=== PATIENT | female | born 1955 | race Hispanic/Latino ===

== ENCOUNTER 2019-10-13 21:00 | Observation (INO) | payer OTHER ==
[~2019-10-13] VITALS: Ht 152.4 cm; Wt 51.7 kg
[2019-10-13] MEDS ORDERED: SODIUM CHLORIDE 0.9% 1000ML 1,000 ML IV STA (21:11)
[2019-10-13 21:27] LABS: BASOPHILS % 0.6 % (0.0-1.0); EOSINOPHILS # (AUTO) 0.1 (0.0-0.4); EOSINOPHILS % 1.7 % (0.0-6.0); HEMOGLOBIN 12.5 g/dL (12.0-16.0); LYMPHOCYTES % 41.2 % (18.0-39.1); MEAN CORPUSCULAR HEMOGLOBIN 30.3 pg (28-32); MEAN CORPUSCULAR HGB CONC 32.1 g/dL (31-35); MEAN CORPUSCULAR VOLUME 94.4 fL (81-99); MONOCYTES # (AUTO) 0.6 (0.2-0.8); MONOCYTES % 8.1 % (4.4-11.3); NEUTROPHILS # (AUTO) 3.5 (2.1-6.9); NEUTROPHILS % 48.3 % (38.7-80.0); PLATELET COUNT 258 x10e3/uL (140-360); RED BLOOD COUNT 4.13 x10e6/uL (3.6-5.1); RED CELL DISTRIBUTION WIDTH 12.7 % (11.7-14.4)
[2019-10-13 21:42] LABS: ALANINE AMINOTRANSFERASE 18 IU/L (0-55); ALBUMIN 4.1 g/dL (3.5-5.0); ALBUMIN/GLOBULIN RATIO 1.1 (0.8-2.0); ALKALINE PHOSPHATASE 78 IU/L (40-150); BLOOD UREA NITROGEN 22 mg/dL (7-26); BUN/CREATININE RATIO 24 (6-25); CALCIUM 9.5 mg/dL (8.4-10.2); CARBON DIOXIDE 27 mmol/L (22-29); CHLORIDE 103 mmol/L (98-107); CREATINE KINASE 79 IU/L (29-168); CREATININE, SERUM 0.92 mg/dL (0.57-1.11); EST GLOMERULAR FILTRATION RATE > 60 ML/MIN (60-); GLUCOSE 101 mg/dL (74-118); SODIUM 140 mmol/L (136-145)
[2019-10-13 21:46] LABS: AMPHETAMINES SCREEN,URINE NEGATIVE (NEGATIVE); BENZODIAZEPINES SCREEN,URINE NEGATIVE (NEGATIVE); PHENCYCLIDINE SCREEN,URINE NEGATIVE (NEGATIVE)
[2019-10-13] MEDS ORDERED: MORPHINE SULFATE INJ 4 MG/ML INJ 1ML IV PRN (22:00)
[2019-10-13] MEDS ORDERED: ONDANSETRON HCL INJ 2MG/ML 2ML 2 MG/ML VIAL IV PRN (22:00)
--- NOTE | 2019-10-13 22:21 | Diagnostic Imaging Report ---
EXAMINATION: CHEST SINGLE (PORTABLE) INDICATION: Hypertension, chest pain. COMPARISON: None FINDINGS: TUBES and LINES: None. LUNGS: Lungs are well inflated. There is no evidence of pneumonia or pulmonary edema. PLEURA: No pleural effusion or pneumothorax. HEART AND MEDIASTINUM: The cardiomediastinal silhouette is unremarkable. BONES AND SOFT TISSUES: No acute osseous lesion. Soft tissues are unremarkable. UPPER ABDOMEN: No free air under the diaphragm. IMPRESSION: No acute thoracic abnormality. Signed by: Dr. Austin Sal MD on 10/13/2019 10:17 PM
--- OUTSIDE RECORDS SUMMARY | 2019-10-13 22:42 | XMS REPORT ---
Author Author [facility] Address Unknown Phone Unavailable Care Team Providers Care Cable Layer Name Role Phone ZAMBRANO MICHELLE Unavailable Unavailable Problems This patient has no known problems. Allergies, Adverse Reactions, Alerts This patient has no known allergies or adverse reactions. Medications This patient has no known medications. Results Test Description Test Time Test Comments Text Results Atomic Results Result Comments CHEST SINGLE (PORTABLE) 2019-10-13 22:12:00 [place] [address] Patient Name: SHA SANABRIA MR #: [id number] : 1955 Age/Sex: 64/F Req #: [id number] Adm Physician: Ordered by: MICHELLE ZAMBRANO DO Report #: [id number] Location: ER Room/Bed: Procedure: [id number] DX/CHEST SINGLE (PORTABLE) Exam Date: Exam Time: REPORT STATUS: Signed EXAMINATION: CHEST SINGLE (PORTABLE) INDICATION: Hy pertension, chest pain. COMPARISON: None FINDINGS: TUBES and LINES: None. LUNGS: Lungs are well inflated. There is no evidence of pneumonia or pulmonary edema. PLEURA: No pleural effusion or pneumothorax. HEART AND MEDIASTINUM: The cardiomediastinal silhouette is unremarkable. BONES AND SOFT TISSUES: No acute osseous lesion. Soft tissues are unremarkable. UPPER ABDOMEN: No free air under the diaphragm. IMPRESSION: No acute thoracic abnormality. Signed by: Dr. Selma Rueda MD on 10/13/2019 10:17 PM Dictated By: SELMA RUEDA MD 16 Transcribed By: GENESIS on 10/13/192216 COPY TO: MICHELLE ZAMBRANO DO
[2019-10-13] MEDS ORDERED: MYRBETRIQ25 MG PO (23:38)
[2019-10-13] MEDS ORDERED: VITAMIN B-121000 MCG PO (23:38)
[2019-10-13] MEDS ORDERED: ONE DAILY MULT1 EAC1 PO (23:38)
[2019-10-13] MEDS ORDERED: ASPIRIN EC81 MG PO (23:38)
[2019-10-13] MEDS ORDERED: ZYRTEC10 MG PO (23:38)
[2019-10-13] MEDS ORDERED: EZETIMIBE-SIMV1 EAC3 PO (23:38)
[2019-10-13] MEDS ORDERED: ESTRADIOL1 MG PO (23:38)
[2019-10-13] MEDS ORDERED: ZANTAC150 MG PO (23:38)
[2019-10-13] MEDS ORDERED: SYNTHROID50 MCG PO (23:38)
[2019-10-13] MEDS ORDERED: NON-FORMULARY MEDICATION (Cetirizine Hcl (Zyrtec) 10 MG) PO SCH (23:45)
[2019-10-13] MEDS ORDERED: FAMOTIDINE 20 MG TAB PO SCH (23:45)
[2019-10-14] VITALS (10 sets, daily range): BP systolic 123–172; BP diastolic 66–91
[2019-10-14] MEDS ORDERED: ACETAMINOPHEN 325 MG TAB PO PRN (04:15)
--- NOTE | 2019-10-14 07:10 | NUR ---
PATIENT SITTING UP IN BED TALKING ON THE PHONE, NO DISTRESS NOTED. DENIED PAIN AT THIS TIME. BED IN LOWER POSITION, CALL LIGHT AT REACH.
[2019-10-14] MEDS: ASPIRIN 81 MG ENTERIC COATED PO SCH (09:14)
[2019-10-14] MEDS: LOSARTAN POTASSIUM 100 MG TAB PO SCH (09:14)
--- NOTE | 2019-10-14 11:42 | NUR ---
BEDSIDE ECHO CARDIOGRAM COMPLETED. PATIENT SITTING AT BED SIDE TALKING TO FAMILY MEMBER VISITING.
--- NOTE | 2019-10-14 12:24 | Diagnostic Imaging Report ---
CT BRAIN WO HISTORY: Headache, high blood pressure COMPARISON: None. TECHNIQUE: Noncontrast axial scans were obtained from skull base to the vertex. Coronal and sagittal reconstructions obtained from the axial data. One or more of the following dose reduction techniques were used: Automated exposure control, adjustment of the mA and/or kV according to patient size, and/or utilization of iterative reconstruction technique. DISCUSSION: Scalp/Skull: Unremarkable. Brain sulci: Appropriate for patient's age. Ventricles: Normal in size and configuration. No hydrocephalus. Extra-axial spaces: No masses or fluid collections. Mild carotid siphon calcifications are present. Parenchyma: No abnormal densities. No mass, hemorrhage, or large vascular territory acute infarct. Dural sinuses: No abnormal densities. Sellar/Suprasellar region: Intact. Skull base: Intact. Incidental findings: None. IMPRESSION: No acute intracranial abnormalities. Signed by: Dr. Sam Wolfe M.D. on 10/14/2019 12:20 PM
--- NOTE | 2019-10-14 12:54 | History and Physical ---
CHIEF COMPLAINT: Chest pain, elevated blood pressure readings. HISTORY OF PRESENT ILLNESS: A 64-year-old female, who has past medical history of hyperlipidemia, hypothyroidism, as well as reflux, presents to the emergency room after she noticed that her blood pressure readings at home were elevated in 180s. The patient reports having some lightheadedness and dizziness when this occurred. The patient reports that she had an annual physical last year. Reports that her blood pressure was stable at that time and did not need any kind of blood pressure medications. Of note, she reports of substernal chest pain with radiation to bilateral shoulders. No associated nausea or vomiting. Reports the pressure as substernal in nature. Has never experienced this chest pain before. She does see a seo executive at [facility]. Has never had a heart catheterization or any kind of cardiac workup in the past. The patient is seen and evaluated at bedside on the medical floor. She is currently doing well with no other issues at this time. REVIEW OF SYSTEMS: Pertinent positive: Chest pressure, lightheadedness, dizziness. Pertinent negatives: Denies any palpitation, nausea, vomiting, diarrhea, dysuria, hematuria, frequency, urgency, headaches, shortness of breath, cough, congestion, fever, or any other complaints. The rest of 14-point review of systems are reviewed with the patient and are negative. ALLERGIES: PENICILLIN. HOME MEDICATIONS: Aspirin 81 mg daily, Zyrtec 10 mg daily, combo drug simvastatin and ezetimibe 10/40 mg one tab daily, Synthroid 25 mcg daily, Zantac 150 mg daily. PAST MEDICAL HISTORY: Hypothyroidism, hyperlipidemia. PAST SURGICAL HISTORY: Reports none. FAMILY HISTORY: Hypertension, diabetes. SOCIAL HISTORY: No drugs. No alcohol. Does not smoke. Good social support. PHYSICAL EXAMINATION: VITAL SIGNS: Temperature is 97, pulse 68, respiratory rate 16, blood pressure 161/77, pulse ox 99% on room air. GENERAL: Not in acute distress. Alert and oriented x3. Cooperative on examination. HEENT: Head; normocephalic, atraumatic. Eyes; pupils are equal, round, and reactive to light bilaterally. Extraocular movements are intact bilaterally. Throat; no evidence of erythema or exudates in the posterior pharynx. Has poor dentition. NECK: Supple. Good range of motion. PULMONARY: Clear to auscultation bilaterally. No wheezing, no rales, no rhonchi, no crackles appreciated. CARDIOVASCULAR: Positive S1 and S2. No murmurs, rubs, or gallops appreciated. ABDOMEN: Soft, nondistended, and nontender to palpation. Bowel sounds present. MUSCULOSKELETAL: Strength is 5/5 throughout. No evidence of any muscle deficits on examination. No weakness appreciated. NEUROLOGIC: Cranial nerve 2 through 12 grossly intact. No evidence of any neurological deficits on exam. SKIN: Intact. Warm to touch. Good cap refill. PSYCHIATRIC: Normal affect and mood. EXTREMITIES: No edema. Good range of motion throughout. LABORATORY FINDINGS: Show white count 7.1, hemoglobin 12.5, hematocrit 39, and platelets of 258. Chemistry; sodium 140 potassium 4, chloride 103, bicarb 27, anion gap of 14, BUN 22, creatinine 0.92, glucose 101, calcium 7.5, total bilirubin was 0.2, AST 21, ALT 18, alkaline phosphatase 78. CK 79, CK-MB 1.2, troponin 0.011, BNP 14. Total protein 7.7, albumin 4.1. Urine drug screen negative. MICROBIOLOGY: None. IMAGING STUDIES: Chest x-ray, no acute traumatic abnormalities. IMPRESSION: 1. Chest pain, rule out acute coronary syndrome, likely atypical in nature. 2. Uncontrolled hypertension. 3. Headaches with history of migraines in the past. 4. Hypothyroidism. PLAN: At this time, trend troponins, aspirin and statin. Cardiology consultation. We will likely need 2D echo, which we will defer to Cardiology. As for her blood pressure, she was started on losartan 100 mg daily, 1st dose now. Her blood pressure was elevated. As for her headaches, we will go ahead and get a CT brain without contrast. This is likely related to uncontrolled hypertension. She did not have SVT on admission. We will go ahead and continue with the levothyroxine. We will get a lipid panel, A1c, TSH level and get morning labs. Lovenox for DVT prophylaxis. Encourage ambulation as well. She is on a heart healthy diet. .Net Programmer is cardiology. She will likely be discharged tomorrow if cleared by Cardiology. MD LENI Dhillon/SARAI /[id number]
--- NOTE | 2019-10-14 14:52 | NUR ---
PATIENT OUT OF BED TO CHAIR WATCHING TV, NO COMPLAIN VOICED. CALL LIGHT AT REACH.
[2019-10-14] MEDS ORDERED: ENOXAPARIN SOD INJ 40 MG/0.4 ML SYR SC SCH (17:00)
[2019-10-14] MEDS ORDERED: LORATADINE 10 MG TAB PO SCH ×2 (21:00)
[2019-10-14] MEDS ORDERED: FAMOTIDINE 20 MG TAB PO SCH (21:00)
[2019-10-14] MEDS ORDERED: EZETIMIBE 10 MG TAB PO SCH (21:00)
[2019-10-14] MEDS ORDERED: SIMVASTATIN 40 MG TAB PO SCH (21:00)
--- NOTE | 2019-10-14 21:42 | Consultation ---
DATE OF CONSULTATION: 10/14/2019 CHIEF COMPLAINT: Hypertension and chest pain. HISTORY OF PRESENT ILLNESS: This is a 64-year-old female with history of hyperlipidemia, hypothyroidism, and family history of CAD. The patient presents to [facility] ER with complaints of elevated blood pressure noted to be 180 systolic on admission and some dizziness, lightheadedness. Also, the patient reported chest discomfort. Cardiology was consulted to evaluate the patient. The patient was seen in room in no acute distress. Reports for the past several weeks has been having headaches when she wakes up, posterior headache with eye fatigue, went to see her eye doctor and was reported as normal. Also, yesterday, the patient reports she was at her sister's house eating and noted to have a headache and felt tired, took a blood pressure and it was apparently 164 systolic, she took 3 of aspirin and went home. Also at home, the patient reports she was taking a shower and started having some chest pain, pressure in nature, radiating to bilateral shoulders with some degree of shortness of breath, lasting for a couple hours, relieved on its own, therefore, came to the ER for further evaluation. Troponins were noticed to be 0.011, next 0.011. EKG without changes suggestive of acute event. Currently, the patient is chest pain free and headache free. Denies any shortness of breath, dizziness, or lightheadedness. PAST MEDICAL HISTORY: Hyperlipidemia, hypothyroidism, and a family history of CAD. PAST SURGICAL HISTORY: and tonsillectomy. SOCIAL HISTORY: She is . 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 Denies any alcohol use or tobacco use. FAMILY HISTORY: Mother at age 62 from [place]. Father at the age of 82 with history of TIAs. HOME MEDICATIONS: Include: 1. Zetia 10 mg. 2. Simvastatin 40 mg. 3. Synthroid 25 mcg. 4. Aspirin 81 mg daily. ALLERGIES: PENICILLIN. REVIEW OF SYSTEMS: GENERAL: Denies any fatigue, weakness, fevers, chills, or night sweats. SKIN: No rashes or sores reported. HEENT: Positive for nausea and vomiting twice yesterday morning. Denies any blurred vision, double vision, earaches, tinnitus, epistaxis, sore throat, swollen gums, or stiff neck. CARDIAC: Positive for chest pain as above. There is positive dyspnea on exertion. Denies any palpitations, any orthopnea, PND, or lower extremity edema. RESPIRATORY: Denies any shortness of breath, any coughing, or hemoptysis. GI: Reports good appetite. Positive for nausea and vomiting. Denies any diarrhea, constipation, melena, or hematochezia. URINARY: Denies any frequency, urgency, dysuria, or hematuria. VASCULAR: Denies any lower extremity edema or claudication. MUSCULOSKELETAL: Positive for generalized joint pains. Denies any lower extremity edema. NEUROLOGIC: Denies any tremors, weakness, paralysis, seizures, or blackouts. HEMATOLOGIC: Denies any anemia or easy bruising. ENDOCRINE: Denies any heat or cold intolerance, polyuria, polydipsia, or polyphagia. PHYSICAL EXAMINATION: VITAL SIGNS: Height 68 inches, weight 114 pounds. On admission, blood pressure 180/99. Currently, blood pressure 145/74, temperature 97.3, pulse 71, respiratory rate 18, and pulse ox 98% on room air. GENERAL: Appears stated age, reliable informant, in no acute distress. SKIN: No rashes or bruises noted. HEENT: Normocephalic. Pupils are equal and reactive. Extraocular movements intact. Trachea midline. No JVD. No carotid bruit. Oral mucosa pink. HEART: Regular rate and rhythm. No murmurs, clicks, or gallops noted. LUNGS: Bilateral breath sounds clear to auscultation. ABDOMEN: Soft, nontender, and nondistended. No organomegaly noted. MUSCULOSKELETAL: Good muscle strength throughout. VASCULAR: +2 bilateral radial pulses, +1 DP and PT pulses bilaterally. No lower extremity edema. NEUROLOGIC: Cranial nerves II through XII seem intact. LABORATORY DATA: Sodium 140, potassium 4.0, chloride 103, BUN 22, creatinine 0.9, and glucose 101. BNP 14. Troponin 0.011 and next 0.011. White count 7, hemoglobin 12, hematocrit 39, and platelets 258. Chest x-ray, no acute abnormalities. CT of the brain, no acute intracranial abnormalities. EKG, normal sinus rhythm. ASSESSMENT: 1. Hypertension. 2. Chest pain. 3. Headaches. 4. Hyperlipidemia. 5. Hypothyroidism. 6. Family history of coronary artery disease. PLAN: 1. The patient presents with chest pain and headaches and noted blood pressure to be in the 180 systolic on admission. Cardia enzymes negative x2 thus far. 2. Long discussion with the patient regarding ischemic evaluation. Stress test discussed. We will proceed with stress test in a.m. 3. We will go ahead and get a lipid panel. 4. Continue antihypertensive therapy, currently on losartan. 5. Continue her simvastatin and Zetia therapy. 6. Echo has been done, will be reviewed by Cardiology attending. 7. We will continue to monitor. Further recommendations post ischemic evaluation. Thank you very much for this consult. Dictated by Darian Stokes NP Guilherme Ramey MD DC/MODL /[id number]
[2019-10-15 00:27] VITALS: BP 130/70
[2019-10-15 04:00] VITALS: BP 119/62
[2019-10-15 05:49] LABS: BASOPHILS # (AUTO) 0.1 (0.0-0.1); BASOPHILS % 1.2 % (0.0-1.0); EOSINOPHILS # (AUTO) 0.1 (0.0-0.4); EOSINOPHILS % 2.4 % (0.0-6.0); HEMATOCRIT 38.1 % (34.2-44.1); HEMOGLOBIN 12.3 g/dL (12.0-16.0); LYMPHOCYTES # (AUTO) 2.4 (1.0-3.2); LYMPHOCYTES % 41.2 % (18.0-39.1); MEAN CORPUSCULAR HGB CONC 32.3 g/dL (31-35); MEAN CORPUSCULAR VOLUME 92.9 fL (81-99); MONOCYTES # (AUTO) 0.5 (0.2-0.8); NEUTROPHILS # (AUTO) 2.7 (2.1-6.9); PLATELET COUNT 232 x10e3/uL (140-360); RED CELL DISTRIBUTION WIDTH 12.8 % (11.7-14.4)
[2019-10-15 06:12] LABS: ANION GAP 10.9 mmol/L (8-16); BLOOD UREA NITROGEN 20 mg/dL (7-26); BUN/CREATININE RATIO 27 (6-25); CALCIUM 8.8 mg/dL (8.4-10.2); CARBON DIOXIDE 24 mmol/L (22-29); CHLORIDE 105 mmol/L (98-107); CREATININE, SERUM 0.75 mg/dL (0.57-1.11); EST GLOMERULAR FILTRATION RATE > 60 ML/MIN (60-); GLUCOSE 90 mg/dL (74-118); POTASSIUM 3.9 mmol/L (3.5-5.1); SODIUM 136 mmol/L (136-145)
[2019-10-15] MEDS ORDERED: LEVOTHYROXINE SODIUM 50 MCG TAB PO SCH (06:30)
[2019-10-15 06:34] LABS: CHOL/HDL RATIO 4.5 (3.0-3.6)
[2019-10-15 06:54] LABS: THYROID STIMULATING HORMONE 0.912 uIU/mL (0.350-4.940)
--- NOTE | 2019-10-15 07:00 | NUR ---
BEDSIDE SHIFT REPORT RECEIVED PT IN STABLE CONDITION, DENEIS PAIN AT THIS TIME, CALL LIGHT IN REACH WILL CONTINUE TO MONITOR
--- NOTE | 2019-10-15 07:26 | NUR ---
D/C Summary Principal Dx: Atypical CP PreMD- hab1c/LDL 5.7/120 Secondary Dx HTN Hypothyroidism Migrane CALDERON PLAN f/u echo f/u stress test cardiac and diabetic diet lovenox; dispo: d/c planning d/c home stable f/u pcp 1 week d/c>35mins Rodolfo Rivera MD, PhD.
[2019-10-15 08:00] VITALS: BP 130/74
[2019-10-15 08:51] VITALS: BP 130/74
[2019-10-15 12:15] VITALS: BP 154/68
[2019-10-15] MEDS ORDERED: LOSARTAN POTAS100 MG PO (14:19)
[2019-10-15 15:30] VITALS: BP 152/73
[2019-10-15] MEDS: ASPIRIN 81 MG ENTERIC COATED PO SCH (15:33)
[2019-10-15] MEDS: LOSARTAN POTASSIUM 100 MG TAB PO SCH (15:33)
== END 2019-10-15 15:38 | disposition home or self-care (01) ==
LOC: ER 21:00 → ERHOLD 22:39 → MED/SURG 23:57 → UNDODISOB 10-15 10:47
PROVIDERS: ADMIT Internal Medicine; ATTEND Internal Medicine
DX: R07.89 Other chest pain (principal); I10 Essential (primary) hypertension; E03.9 Hypothyroidism, unspecified; G50.1 Atypical facial pain; E78.5 Hyperlipidemia, unspecified; Z82.49 Family history of ischemic heart disease and other diseases of the circulatory system
CPT/HCPCS: 36415 ×3; 70450; 71045; 80048; 80053; 80061; 80307; 82550; 82553; 83036; 83880; 84443; 84484 ×2; 85025 ×2; 93005; 93306; 99284; G0378 ×3; J1650; J7030